=== PATIENT | female | born 1965 | race Caucasian/White ===

== ENCOUNTER 2022-02-17 17:40 | Observation (INO) | payer BC, OTHER ==
[2022-02-17] MEDS ORDERED: BABY ASPIRIN 81 MG CHEW PO ONE (17:45)
[2022-02-17] MEDS ORDERED: Nitrostat 0.4 MG (ED) SL ONE (17:47)
[2022-02-17] MEDS ORDERED: BABY ASPIRIN 81 MG CHEW ONE (17:50)
[2022-02-17] MEDS ORDERED: MORPHINE SULFATE 4 MG INJ ONE (17:50)
[2022-02-17] MEDS ORDERED: Zofran 4 MG/2 ML VIAL ONE (17:50)
[2022-02-17] MEDS ORDERED: MORPHINE SULFATE 4 MG INJ IV ONE (17:50)
[2022-02-17] MEDS ORDERED: Zofran 4 MG/2 ML VIAL IV ONE (17:50)
[2022-02-17 18:01] LABS: Absolute Neutrophil Ct (ANC) 3.81 x10^3/uL (1.4-6.9); Basophil (Absolute #) 0.06 x10^3/uL (0-0.4); Eosinophil % 2.5 % (0.00-5.0); Eosinophil (Absolute #) 0.17 x10^3/uL (0-0.5); Hematocrit 44.3 % (35-47); Hemoglobin 14.6 g/dL (12.0-16.0); Lymphocyte (Absolute #) 2.18 x10^3/uL (1.0-4.6); Lymphocytes % 31.5 % (24.0-44.0); Mean Cell Volume 93.9 fL (78-100); Mean Corpuscular Hemoglobin 30.9 pg (26-32); Mean Platelet Volume 9.7 fL (7.5-11.0); Monocyte (Absolute #) 0.68 x10^3/uL (0.0-1.3); Monocytes % 9.8 % (0.0-12.0); Platelet Count 317 x10^3/uL (150-450); Red Blood Count 4.72 x10^6/uL (4.1-5.4); Red Cell Distribution Width 12.1 % (11.5-14.0); White Blood Count 6.9 x10^3/uL (4.0-10.5)
--- NOTE | 2022-02-17 18:01 | ERPHSYRPT ---
<LEIGH THORNTON - Last Filed: 02/17/22 19:14> - History of Present Illness Time Seen by Provider: 02/17/22 17:45 Historian: patient Exam Limitations: no limitations Patient Subjective Stated Complaint: Pt states "I was driving and had pressure in my chest and the pain went into my back." Triage Nursing Assessment: Pt presented alert and oriented X 3, skin pwd. Pt clutching her chest, unable to sit stil. PT moaning and grunting. Physician History: 56 yo wf w inferior, mid-sternal chest pain which started 20 minutes before ER arrival while driving away from [facility]. Pain radiated to her back and is currently rated 4/10 from a high of 9/10. It is described as a pressure, and nothing makes it better or worse. Pt denies N/V/dyspnea/diaphoresis. She denies h/o CAD-[place], along w HTN/DM/hyperlipidemia/FH CAD-[place]. She does smoke 1ppd and has never had this pain before. Cough/Fever/Coryza are denied. Timing/Duration: other (20minutes before arrival) Activities at Onset: other (Driving from [facility]) Quality: pressure Location: substernal Chest Pain Radiation: back Severity of Pain-Max: severe Severity of Pain-Current: moderate Modifying Factors: Improves With: nothing Associated Symptoms: denies symptoms Prior Chest Pain/Cardiac Workup: no prior chest pain Nitro Today/Relief: no nitro taken today Aspirin Treatment Today: no aspirin today Allergies/Adverse Reactions: No Known Drug Allergies Allergy (Verified 02/17/22 17:48) Home Medications: No Reportable Medications [No Reported Medications] 02/17/22 [History] Hx Tetanus, Diphtheria Vaccination/Date Given: No Hx Influenza Vaccination/Date Given: No Hx Pneumococcal Vaccination/Date Given: Yes Immunizations Up to Date: Yes Travel Risk - International Travel Have you traveled outside of the country in past 3 weeks: No - Coronavirus Screening Are you exhibiting any of the following symptoms?: No Close contact with a COVID-19 positive Pt in past 14-21 Days: No - Vaccine Status Have you recieved a Covid-19 vaccination: Yes 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 - Vaccination Dates Date of 2cond Vaccination (if applicable): 2020 - Review of Systems Constitutional: No Symptoms Eyes: No Symptoms Ears, Nose, & Throat: No Symptoms Respiratory: No Symptoms Cardiac: No Symptoms, Chest Pain Abdominal/Gastrointestinal: No Symptoms Genitourinary Symptoms: No Symptoms Musculoskeletal: No Symptoms Skin: No Symptoms Neurological: No Symptoms Psychological: No Symptoms Endocrine: No Symptoms Hematologic/Lymphatic: No Symptoms Immunological/Allergic: No Symptoms - Past Medical History Pertinent Past Medical History: No Neurological History: No Pertinent History Cardiac History: No Pertinent History Respiratory History: No Pertinent History Endocrine Medical History: No Pertinent History Musculoskeletal History: No Pertinent History - Past Surgical History Past Surgical History: Yes Other Surgical History: colton. . laproscopic - Social History Smoking Status: Current every day smoker How long have you smoked: years Exposure to second hand smoke: Yes Drug Use: none Patient Lives Alone: No - Nursing Vital Signs Nursing Vital Signs: Hypertensive - Physical Exam General Appearance: no apparent distress Eye Exam: PERRL/EOMI, eyes nml inspection Ears, Nose, Throat Exam: normal ENT inspection, TMs normal, pharynx normal, moist mucous membranes Neck Exam: normal inspection, non-tender, supple, full range of motion, No meningismus, No mass, No Brudzinski, No Kernig's, No carotid bruit Respiratory Exam: normal breath sounds, lungs clear, airway intact, No chest tenderness, No respiratory distress Cardiovascular Exam: regular rate/rhythm, normal heart sounds, normal peripheral pulses, capillary refill <2 sec, No murmur Gastrointestinal/Abdomen Exam: soft, normal bowel sounds, No tenderness Back Exam: normal inspection, normal range of motion, No CVA tenderness, No vertebral tenderness Extremity Exam: normal inspection, normal range of motion Neurologic Exam: alert, oriented x 3, cooperative, 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, normal mood/affect, nml cerebellar function, nml station & gait, sensation nml, No motor deficits, No sensory deficit Skin Exam: normal color, warm, dry, No rash Lymphatic Exam: No adenopathy SpO2 Interpretation: normal SpO2: 98 O2 Delivery: Room Air - Course Nursing assessment & vital signs reviewed: Yes EKG Interpreted by Me: RATE (NSR/Rate 74/Normal QT0QTc/Normal Pwaves/Non-specif ic ST changes) - Radiology Exams Chest X-ray Interpretation: Interpreted by me (NAD) - Progress Progress: improved Progress Note: 02/17/22 19:06 Pain greatly improved w 4mg IV MSO4/4mg IV zofran 02/17/22 19:14 Dr. Garcia assumed care of pt at 1900 - Departure Clinical Impression: ACS (acute coronary syndrome), Chest pain, Abnormal ECG Condition: Stable <MYRIAM GARCIA - Last Filed: 02/17/22 23:43> - Nursing Vital Signs Nursing Vital Signs: Initial Vital Signs Temperature 98.0 F 02/17/22 17:41 Pulse Rate 88 02/17/22 17:41 Respiratory Rate 20 02/17/22 17:41 Blood Pressure 175/80 02/17/22 17:41 O2 Sat by Pulse Oximetry 98 02/17/22 17:41 Pain Scale Pain Intensity 0 Ordered Tests: Active Orders 24 hr Category Date Time Status Bedrest with BRP/BSC ROUTINE Activity 02/17/22 23:18 Active Code Status Order ROUTINE Care 02/17/22 23:18 Active EKG-ER Only STAT Care 02/17/22 17:45 Completed IV Care Q6H Care 02/17/22 23:18 Active IV Insertion STAT Care 02/17/22 17:45 Completed Implement Chest Pain Pathway ROUTINE Care 02/17/22 23:[address] in Observation ROUTINE Care 02/17/22 23:18 Active Shai Ballesteros, Apply ROUTINE Care 02/17/22 23:18 Active Telemetry q6h Care 02/17/22 23:18 Active Weight,Daily 0600 Care 02/17/22 23:18 Active Consistent Carbohydrate Diet 1800 Calorie Diet 02/18/22 Breakfast Active CHEST 1 VIEW (PORTABLE) Stat Exams 02/17/22 17:46 Taken CBC W DIFF Stat Lab 02/17/22 17:50 Completed CMP Stat Lab 02/17/22 17:50 Completed LIPID PROFILE AM.LAB Lab 02/18/22 04:00 Ordered NT PRO BNP Stat Lab 02/17/22 17:50 Completed PROTIME WITH INR Stat Lab 02/17/22 17:50 Completed PTT Stat Lab 02/17/22 17:50 Completed TROPONIN Q4H Lab 02/17/22 17:50 Completed TROPONIN Q4H Lab 02/17/22 21:07 Completed TROPONIN Q4H Lab 02/18/22 02:00 Ordered TROPONIN Q4H Lab 02/18/22 03:18 Ordered TROPONIN Q4H Lab 02/18/22 07:18 Ordered EKG Q8HX2,QAMX3,PRN RT 02/17/22 23:18 Active Pulse Oximetry Q4H RT 02/17/22 23:18 Active Transfer Order Routine Transfer 02/17/22 Completed Medication Summary Generic Name Dose Route Start Last Admin Trade Name Jesus PRN Reason Stop Dose Admin Acetaminophen 650 mg 02/17/22 23:18 Acetaminophen 325 Mg Tablet PO 03/19/22 23:17 Q4H PRN PRN PAIN AND/OR FEVER Al Hydrox/Mg Hydrox/Simethicone 30 ml 02/17/22 23:18 Mag Hydrox/Al Hydrox/Simeth 30 Ml Udcup PO 03/19/22 23:17 Q4H PRN PRN INDIGESTION Magnesium Hydroxide 30 - 60 ml 02/17/22 23:18 Magnesium Hydroxide 30 Ml Udcup PO 03/19/22 23:17 QDP PRN CONSTIPATION Ondansetron HCl 4 mg 02/17/22 23:18 Ondansetron Hcl 4 Mg/2 Ml Vial IV 03/19/22 23:17 Q4H PRN PRN NAUSEA/VOMITING Senna/Docusate Sodium 2 udtab 02/17/22 23:18 Senna/Docusate Sodium 1 Udtab Tablet PO 03/19/22 23:17 BID PRN PRN CONSTIPATION Discontinued Medications Generic Name Dose Route Start Last Admin Trade Name Jesus PRN Reason Stop Dose Admin Aspirin 324 mg 02/17/22 17:45 02/17/22 17:53 Aspirin 81 Mg Tab.Chew PO 02/17/22 17:46 324 mg STAT ONE Administration Aspirin Confirm 02/17/22 17:50 Aspirin 81 Mg Tab.Chew Administered 02/17/22 17:51 Dose 324 mg .ROUTE .STK-MED ONE Morphine Sulfate 4 mg 02/17/22 17:50 02/17/22 17:52 Morphine Sulfate 4 Mg/Ml Injection IV 02/17/22 17:51 4 mg STAT ONE Administration Morphine Sulfate Confirm 02/17/22 17:50 Morphine Sulfate 4 Mg/Ml Injection Administered 02/17/22 17:51 Dose 4 mg .ROUTE .STK-MED ONE Nitroglycerin 0.4 mg 02/17/22 17:47 02/17/22 17:49 Nitroglycerin 0.4 Mg (Ed) 0.4 Mg Tab.Subl SL 02/17/22 17:48 Not Given STAT ONE Ondansetron HCl 4 mg 02/17/22 17:50 02/17/22 17:53 Ondansetron Hcl 4 Mg/2 Ml Vial IV 02/17/22 17:51 4 mg STAT ONE Administration Ondansetron HCl Confirm 02/17/22 17:50 Ondansetron Hcl 4 Mg/2 Ml Vial Administered 02/17/22 17:51 Dose 4 mg .ROUTE .STK-MED ONE Lab/Rad Data: Laboratory Result Diagrams 02/17/22 17:50 02/17/22 17:50 Laboratory Results 02/17/22 02/17/22 02/17/22 Range/Units 21:07 21:07 17:50 WBC (4.0-10.5) x10^3/uL RBC (4.1-5.4) x10^6/uL Hgb (12.0-16.0) g/dL Hct (35-47) % MCV (78-100) fL MCH (26-32) pg MCHC (32-36) g/dL RDW (11.5-14.0) % Plt Count (150-450) x10^3/uL MPV (7.5-11.0) fL Gran % (36.0-66.0) % Immature Gran % (Auto) (0.00-0.4) % Nucleat RBC Rel Count (0.00-0.1) % Eos # (Auto) (0-0.5) x10^3/uL Immature Gran # (Auto) (0.00-0.03) x10^3u/L Absolute Lymphs (auto) (1.0-4.6) x10^3/uL Absolute Monos (auto) (0.0-1.3) x10^3/uL Absolute Nucleated RBC (0.00-0.01) x10^3u/L Lymphocytes % (24.0-44.0) % Monocytes % (0.0-12.0) % Eosinophils % (0.00-5.0) % Basophils % (0.0-0.4) % Absolute Granulocytes (1.4-6.9) x10^3/uL Basophils # (0-0.4) x10^3/uL PT (9.4-12.5) SECONDS INR (0.8-3.0) APTT (25.1-36.5) SECONDS Sodium (137-145) mmol/L Potassium (3.5-5.1) mmol/L Chloride (98-107) mmol/L Carbon Dioxide (22-30) mmol/L Anion Gap (5-15) MEQ/L BUN (7-17) mg/dL Creatinine (0.52-1.04) mg/dL Estimated GFR ML/MIN Glucose (74-106) mg/dL Calcium (8.4-10.2) mg/dL Total Bilirubin (0.2-1.3) mg/dL AST (14-36) U/L ALT (0-35) U/L Alkaline Phosphatase (38-126) U/L Troponin I < 0.012 < 0.012 (0.000-0.034) ng/mL NT-Pro-B Natriuret Pep (0-900) pg/mL Serum Total Protein (6.3-8.2) g/dL Albumin (3.5-5.0) g/dL Influenza Type A Ag NEGATIVE (NEGATIVE) Influenza Type B Ag NEGATIVE (NEGATIVE) RSV (PCR) NEGATIVE (Negative) SARS-CoV-2 (PCR) NEGATIVE (NEGATIVE) 02/17/22 02/17/22 02/17/22 Range/Units 17:50 17:50 17:50 WBC 6.9 (4.0-10.5) x10^3/uL RBC 4.72 (4.1-5.4) x10^6/uL Hgb 14.6 (12.0-16.0) g/dL Hct 44.3 (35-47) % MCV 93.9 (78-100) fL MCH 30.9 (26-32) pg MCHC 33.0 (32-36) g/dL RDW 12.1 (11.5-14.0) % Plt Count 317 (150-450) x10^3/uL MPV 9.7 (7.5-11.0) fL Gran % 55.0 (36.0-66.0) % Immature Gran % (Auto) 0.3 (0.00-0.4) % Nucleat RBC Rel Count 0.0 (0.00-0.1) % Eos # (Auto) 0.17 (0-0.5) x10^3/uL Immature Gran # (Auto) 0.02 (0.00-0.03) x10^3u/L Absolute Lymphs (auto) 2.18 (1.0-4.6) x10^3/uL Absolute Monos (auto) 0.68 (0.0-1.3) x10^3/uL Absolute Nucleated RBC 0.00 (0.00-0.01) x10^3u/L Lymphocytes % 31.5 (24.0-44.0) % Monocytes % 9.8 (0.0-12.0) % Eosinophils % 2.5 (0.00-5.0) % Basophils % 0.9 (0.0-0.4) % Absolute Granulocytes 3.81 (1.4-6.9) x10^3/uL Basophils # 0.06 (0-0.4) x10^3/uL PT 10.4 (9.4-12.5) SECONDS INR 0.98 (0.8-3.0) APTT 26.1 (25.1-36.5) SECONDS Sodium 139 (137-145) mmol/L Potassium 4.5 (3.5-5.1) mmol/L Chloride 105 (98-107) mmol/L Carbon Dioxide 28 (22-30) mmol/L Anion Gap 11.8 (5-15) MEQ/L BUN 16 (7-17) mg/dL Creatinine 0.60 (0.52-1.04) mg/dL Estimated GFR > 60.0 ML/MIN Glucose 98 (74-106) mg/dL Calcium 9.4 (8.4-10.2) mg/dL Total Bilirubin 0.30 (0.2-1.3) mg/dL AST 26 (14-36) U/L ALT 26 (0-35) U/L Alkaline Phosphatase 78 (38-126) U/L Troponin I (0.000-0.034) ng/mL NT-Pro-B Natriuret Pep 31.7 (0-900) pg/mL Serum Total Protein 7.2 (6.3-8.2) g/dL Albumin 4.5 (3.5-5.0) g/dL Influenza Type A Ag (NEGATIVE) Influenza Type B Ag (NEGATIVE) RSV (PCR) (Negative) SARS-CoV-2 (PCR) (NEGATIVE) - Progress Air Movement: good Progress Note: Patient endorsed Dr. Garcia at approximately 7 PM. Troponin negative. However EKG abnormal. In light of patient's cardiac risk factors and the fact that she has not had a cardiac work-up in over 6 years we will admit for further ev aluation and treatment. Case discussed with Dr. Brown who accepts admission to observation. Plan of care discussed with patient. She agrees to admission [facility] for further evaluation and treatment. Portions of this note were created with voice recognition technology. There may be grammatical, spelling, punctuation or sound alike errors 02/17/22 23:39 Blood Culture(s) Obtained: No Antibiotics given: No Discussed with : Esther Will see patient in: hospital (observation) Counseled pt/family regarding: lab results, diagnosis, rad results - Departure Departure Disposition: Observation Critical Care Time: No
[2022-02-17 18:44] LABS: ALBUMIN 4.5 g/dL (3.5-5.0); ALKALINE PHOSPHATASE 78 U/L (38-126); ANION GAP 11.8 MEQ/L (5-15); BLOOD UREA NITROGEN 16 mg/dL (7-17); CHLORIDE 105 mmol/L (98-107); Calcium 9.4 mg/dL (8.4-10.2); Carbon Dioxide 28 mmol/L (22-30); EST GLOMERULAR FILTRATION RATE > 60.0 ML/MIN; Glucose 98 mg/dL (74-106); NT PRO BNP 31.7 pg/mL (0-900); Potassium 4.5 mmol/L (3.5-5.1); SGOT/AST 26 U/L (14-36); SGPT/ALT 26 U/L (0-35); SODIUM 139 mmol/L (137-145); Total Protein 7.2 g/dL (6.3-8.2)
[2022-02-17 19:05] LABS: INR 0.98 (0.8-3.0); PROTIME 10.4 SECONDS (9.4-12.5); PTT 26.1 SECONDS (25.1-36.5)
[2022-02-17 21:46] LABS: INFLUENZA A NEGATIVE (NEGATIVE); INFLUENZA B NEGATIVE (NEGATIVE); RESPIRATORY SYNCTIAL VIRUS NEGATIVE (Negative); SARS-CoV-2 Xpert Express NEGATIVE (NEGATIVE)
[2022-02-17] MEDS ORDERED: MILK OF MAGNESIA 30 ML PO PRN (23:18)
[2022-02-17] MEDS ORDERED: Senokot-S Tablet PO PRN (23:18)
[2022-02-17] MEDS ORDERED: Zofran 4 MG/2 ML VIAL IV PRN (23:18)
[2022-02-17] MEDS ORDERED: MAALOX ES 30 ML UNIT DOSE PO PRN (23:18)
[2022-02-17] MEDS ORDERED: TYLENOL 325 MG PO PRN (23:18)
[2022-02-18 02:51] LABS: Risk Ratio 3.2
[2022-02-18] MEDS ORDERED: PATIENT OWN MEDICATION IH PRN (05:35)
[2022-02-18] MEDS ORDERED: PATIENT OWN MEDICATION IH SCH (07:00)
--- NOTE | 2022-02-18 08:42 | XRAY ---
Indication: Chest pain. Comparison: June 21, 2019 Portable chest remains hyperinflated and clear. Heart not enlarged. Bony thorax intact again with mild osteopenia. No new/acute findings.
--- NOTE | 2022-02-18 11:12 | PCM.SSS ---
History of Present Illness - Chief Complaint Chief Complaint: ACS History of Present Illness: is a 56 year old female pt of Gail Kumar, with hyperlipidemia, seasonal allergies, and PTSD who smokes 1 PPD who came in through ER with chest pain. She had been driving nearby and started having pressure in the midsternum radiating to thoracic spine. Pain was 7/10, came on quickly and lasted about 20 min. Had SOB, palpitations, and a littel diaphoresis (hands were clammy). No nausea. Has no hx SD or CAD. Her last stress test was several years ago, treadmill. Her daughter has heart issues and sees a bran mixer, but pt says that is related to Covid. Her EKG was nonacute. Troponins have been neg x 3. She will be discharged to home and f/u with Gail Kumar in 1 week. Will schedule outpatient treadmill test. Would advise pt to stop smoking. - Review of Systems Respiratory: Short Of Breath Cardiac: Chest Pain, Palpitations, Other (palpitations, diaphoresis) Psychological: Anxiety All Other Systems: Reviewed and Negative Medications & Allergies Home Medications: Home Medication List Albuterol Common Canister [Ventolin Common Canister] 90 mcg IH Q4H 02/18/22 [History Confirmed 02/18/22] Allergies/Adverse Reactions: Allergies Allergy/AdvReac Type Severity Reaction Status Date / Time No Known Drug Allergies Allergy Verified 02/17/22 17:48 - Past Medical History Past Medical History: No Neurological History: No Pertinent History ENT History: No Pertinent History Cardiac History: No Pertinent History Respiratory History: No Pertinent History Endocrine Medical History: No Pertinent History Musculoskelatal History: No Pertinent History GI Medical History: No Pertinent History History: No Pertinent History Pyscho-Social History: No Pertinent History Reproductive Disorders: No Pertinent History - Past Surgical History Past Surgical History: Yes Respiratory Surgery: Other GI Surgical History: Cholecystectomy Female Surgical History: Section Other Surgical History: asthma - Social History Smoking Status: Current every day smoker How long have you smoked: years Exposure to second hand smoke: Yes Alcohol: Weekly Drug Use: none - Physical Exam Vital Signs: Vital Signs - 24 hr Temp Pulse Pulse Resp BP Pulse Ox 02/18/22 07:31 97.6 F 63 16 126/76 92 L 02/18/22 07:00 66 16 93 L 11/16/22 05:37 78 18 94 L 02/18/22 04:00 97.5 F 73 17 140/66 93 L 02/17/22 23:43 96.9 F 68 17 140/66 96 02/17/22 22:00 62 16 114/67 94 L 02/17/22 21:00 70 14 130/83 95 02/17/22 20:00 68 16 115/72 92 L 02/17/22 19:21 72 18 117/75 98 02/17/22 19:14 98 02/17/22 18:48 65 20 135/71 94 L 02/17/22 17:41 98.0 F 88 80 20 175/80 98 General Appearance: no apparent distress, thin Neurologic Exam: alert, oriented x 3, cooperative Eye Exam: eyes nml inspection Ears, Nose, Throat Exam: dry mucous membranes Neck Exam: normal inspection, non-tender, No lymphadenopathy, No thyromegaly Respiratory Exam: normal breath sounds, lungs clear, No crackles/rales, No rhonchi, No wheezing Cardiovascular Exam: regular rate/rhythm, normal heart sounds, No murmur Gastrointestinal/Abdomen Exam: soft, normal bowel sounds, No tenderness, No distention, No mass, No guarding, No rebound Back Exam: normal inspection, No CVA tenderness, No rash Extremity Exam: normal inspection, No pedal edema, No swelling Skin Exam: normal color, warm, dry, No rash Results - Labs Lab/Micro Results: Lab Results-Last 24 Hours 02/17/22 02/17/22 02/17/22 Range/Units 17:50 17:50 17:50 WBC 6.9 (4.0-10.5) x10^3/uL RBC 4.72 (4.1-5.4) x10^6/uL Hgb 14.6 (12.0-16.0) g/dL Hct 44.3 (35-47) % MCV 93.9 (78-100) fL MCH 30.9 (26-32) pg MCHC 33.0 (32-36) g/dL RDW 12.1 (11.5-14.0) % Plt Count 317 (150-450) x10^3/uL MPV 9.7 (7.5-11.0) fL Gran % 55.0 (36.0-66.0) % Immature Gran % (Auto) 0.3 (0.00-0.4) % Nucleat RBC Rel Count 0.0 (0.00-0.1) % Eos # (Auto) 0.17 (0-0.5) x10^3/uL Immature Gran # (Auto) 0.02 (0.00-0.03) x10^3u/L Absolute Lymphs (auto) 2.18 (1.0-4.6) x10^3/uL Absolute Monos (auto) 0.68 (0.0-1.3) x10^3/uL Absolute Nucleated RBC 0.00 (0.00-0.01) x10^3u/L Lymphocytes % 31.5 (24.0-44.0) % Monocytes % 9.8 (0.0-12.0) % Eosinophils % 2.5 (0.00-5.0) % Basophils % 0.9 (0.0-0.4) % Absolute Granulocytes 3.81 (1.4-6.9) x10^3/uL Basophils # 0.06 (0-0.4) x10^3/uL PT 10.4 (9.4-12.5) SECONDS INR 0.98 (0.8-3.0) APTT 26.1 (25.1-36.5) SECONDS Sodium 139 (137-145) mmol/L Potassium 4.5 (3.5-5.1) mmol/L Chloride 105 (98-107) mmol/L Carbon Dioxide 28 (22-30) mmol/L Anion Gap 11.8 (5-15) MEQ/L BUN 16 (7-17) mg/dL Creatinine 0.60 (0.52-1.04) mg/dL Estimated GFR > 60.0 ML/MIN Glucose 98 (74-106) mg/dL Calcium 9.4 (8.4-10.2) mg/dL Total Bilirubin 0.30 (0.2-1.3) mg/dL AST 26 (14-36) U/L ALT 26 (0-35) U/L Alkaline Phosphatase 78 (38-126) U/L Troponin I (0.000-0.034) ng/mL NT-Pro-B Natriuret Pep 31.7 (0-900) pg/mL Serum Total Protein 7.2 (6.3-8.2) g/dL Albumin 4.5 (3.5-5.0) g/dL Triglycerides (30-150) mg/dL Cholesterol (50-200) mg/dL LDL Cholesterol (30-100) mg/dL HDL Cholesterol (40-60) mg/dL Heart Disease Risk Ratio Influenza Type A Ag (NEGATIVE) Influenza Type B Ag (NEGATIVE) RSV (PCR) (Negative) SARS-CoV-2 (PCR) (NEGATIVE) 02/17/22 02/17/22 02/17/22 Range/Units 17:50 21:07 21:07 WBC (4.0-10.5) x10^3/uL RBC (4.1-5.4) x10^6/uL Hgb (12.0-16.0) g/dL Hct (35-47) % MCV (78-100) fL MCH (26-32) pg MCHC (32-36) g/dL RDW (11.5-14.0) % Plt Count (150-450) x10^3/uL MPV (7.5-11.0) fL Gran % (36.0-66.0) % Immature Gran % (Auto) (0.00-0.4) % Nucleat RBC Rel Count (0.00-0.1) % Eos # (Auto) (0-0.5) x10^3/uL Immature Gran # (Auto) (0.00-0.03) x10^3u/L Absolute Lymphs (auto) (1.0-4.6) x10^3/uL Absolute Monos (auto) (0.0-1.3) x10^3/uL Absolute Nucleated RBC (0.00-0.01) x10^3u/L Lymphocytes % (24.0-44.0) % Monocytes % (0.0-12.0) % Eosinophils % (0.00-5.0) % Basophils % (0.0-0.4) % Absolute Granulocytes (1.4-6.9) x10^3/uL Basophils # (0-0.4) x10^3/uL PT (9.4-12.5) SECONDS INR (0.8-3.0) APTT (25.1-36.5) SECONDS Sodium (137-145) mmol/L Potassium (3.5-5.1) mmol/L Chloride (98-107) mmol/L Carbon Dioxide (22-30) mmol/L Anion Gap (5-15) MEQ/L BUN (7-17) mg/dL Creatinine (0.52-1.04) mg/dL Estimated GFR ML/MIN Glucose (74-106) mg/dL Calcium (8.4-10.2) mg/dL Total Bilirubin (0.2-1.3) mg/dL AST (14-36) U/L ALT (0-35) U/L Alkaline Phosphatase (38-126) U/L Troponin I < 0.012 < 0.012 (0.000-0.034) ng/mL NT-Pro-B Natriuret Pep (0-900) pg/mL Serum Total Protein (6.3-8.2) g/dL Albumin (3.5-5.0) g/dL Triglycerides (30-150) mg/dL Cholesterol (50-200) mg/dL LDL Cholesterol (30-100) mg/dL HDL Cholesterol (40-60) mg/dL Heart Disease Risk Ratio Influenza Type A Ag NEGATIVE (NEGATIVE) Influenza Type B Ag NEGATIVE (NEGATIVE) RSV (PCR) NEGATIVE (Negative) SARS-CoV-2 (PCR) NEGATIVE (NEGATIVE) 02/18/22 02/18/22 Range/Units 02:15 02:15 WBC (4.0-10.5) x10^3/uL RBC (4.1-5.4) x10^6/uL Hgb (12.0-16.0) g/dL Hct (35-47) % MCV (78-100) fL MCH (26-32) pg MCHC (32-36) g/dL RDW (11.5-14.0) % Plt Count (150-450) x10^3/uL MPV (7.5-11.0) fL Gran % (36.0-66.0) % Immature Gran % (Auto) (0.00-0.4) % Nucleat RBC Rel Count (0.00-0.1) % Eos # (Auto) (0-0.5) x10^3/uL Immature Gran # (Auto) (0.00-0.03) x10^3u/L Absolute Lymphs (auto) (1.0-4.6) x10^3/uL Absolute Monos (auto) (0.0-1.3) x10^3/uL Absolute Nucleated RBC (0.00-0.01) x10^3u/L Lymphocytes % (24.0-44.0) % Monocytes % (0.0-12.0) % Eosinophils % (0.00-5.0) % Basophils % (0.0-0.4) % Absolute Granulocytes (1.4-6.9) x10^3/uL Basophils # (0-0.4) x10^3/uL PT (9.4-12.5) SECONDS INR (0.8-3.0) APTT (25.1-36.5) SECONDS Sodium (137-145) mmol/L Potassium (3.5-5.1) mmol/L Chloride (98-107) mmol/L Carbon Dioxide (22-30) mmol/L Anion Gap (5-15) MEQ/L BUN (7-17) mg/dL Creatinine (0.52-1.04) mg/dL Estimated GFR ML/MIN Glucose (74-106) mg/dL Calcium (8.4-10.2) mg/dL Total Bilirubin (0.2-1.3) mg/dL AST (14-36) U/L ALT (0-35) U/L Alkaline Phosphatase (38-126) U/L Troponin I < 0.012 (0.000-0.034) ng/mL NT-Pro-B Natriuret Pep (0-900) pg/mL Serum Total Protein (6.3-8.2) g/dL Albumin (3.5-5.0) g/dL Triglycerides 127 (30-150) mg/dL Cholesterol 186 (50-200) mg/dL LDL Cholesterol 102 H (30-100) mg/dL HDL Cholesterol 59 (40-60) mg/dL Heart Disease Risk Ratio 3.2 Influenza Type A Ag (NEGATIVE) Influenza Type B Ag (NEGATIVE) RSV (PCR) (Negative) SARS-CoV-2 (PCR) (NEGATIVE) - Radiology Impressions Radiology Exams & Impressions: Radiology Procedures Category Date Time Status CHEST 1 VIEW (PORTABLE) Stat Exams 02/17/22 17:46 Completed - Other Procedures and Tests Respiratory Therapy 02/18/22 05:34 Respiratory Therapy Assessment DAILY 02/18/22 07:00 Respiratory MDI TID 02/19/22 05:00 EKG DAILY 02/20/22 05:00 EKG DAILY 02/21/22 05:00 EKG DAILY Assessment/Plan (1) Chest pain Current Visit: Yes Status: Acute Qualifiers: Chest pain type: unspecified Qualified Code(s): R07.9 - Chest pain, unspecified Assessment & Plan: Troponins neg. EKG with some nonspecific ST changes, nothing indicative of acute SD. F/u with PCP in 1 week. F/u with outpatient treadmill. Code(s): R07.9 - CHEST PAIN, UNSPECIFIED Hospital Summary - Hospital Course Hospital Course: is a 56 year old female pt of Gail Kumar, with hyperlipidemia, seasonal allergies, and PTSD who smokes 1 PPD who came in through ER with chest pain. She had been driving nearby and started having pressure in the midsternum radiating to thoracic spine. Pain was 7/10, came on quickly and lasted about 20 min. Had SOB, palpitations, and a littel diaphoresis (hands were clammy). No nausea. Has no hx SD or CAD. Her last stress test was several years ago, [facility]. Her daughter has heart issues and sees a bran mixer, but pt says that is related to Covid. Her EKG was nonacute. Troponins have been neg x 3. She will be discharged to home and f/u with Gail Kumar in 1 week. Will schedule outpatient treadmill test. Would advise pt to stop smoking. - Vitals & Intake/Output Vital Signs: Vital Signs Temperature 97.6 F 02/18/22 07:31 Pulse Rate 63 02/18/22 07:31 Respiratory Rate 16 02/18/22 07:31 Blood Pressure 126/76 02/18/22 07:31 O2 Sat by Pulse Oximetry 92 L 02/18/22 07:31 Intake & Output: Intake & Output 02/15/22 02/16/22 02/17/22 02/18/22 11:59 11:59 11:59 11:59 Intake Total 960 Balance 960 Weight 65.1 kg - Lab Result Diagrams: 02/17/22 17:50 02/17/22 17:50 Lab Results-Last 24 Hrs: Lab Results-Last 24 Hours 02/17/22 02/17/22 02/17/22 Range/Units 17:50 17:50 17:50 WBC 6.9 (4.0-10.5) x10^3/uL RBC 4.72 (4.1-5.4) x10^6/uL Hgb 14.6 (12.0-16.0) g/dL Hct 44.3 (35-47) % MCV 93.9 (78-100) fL MCH 30.9 (26-32) pg MCHC 33.0 (32-36) g/dL RDW 12.1 (11.5-14.0) % Plt Count 317 (150-450) x10^3/uL MPV 9.7 (7.5-11.0) fL Gran % 55.0 (36.0-66.0) % Immature Gran % (Auto) 0.3 (0.00-0.4) % Nucleat RBC Rel Count 0.0 (0.00-0.1) % Eos # (Auto) 0.17 (0-0.5) x10^3/uL Immature Gran # (Auto) 0.02 (0.00-0.03) x10^3u/L Absolute Lymphs (auto) 2.18 (1.0-4.6) x10^3/uL Absolute Monos (auto) 0.68 (0.0-1.3) x10^3/uL Absolute Nucleated RBC 0.00 (0.00-0.01) x10^3u/L Lymphocytes % 31.5 (24.0-44.0) % Monocytes % 9.8 (0.0-12.0) % Eosinophils % 2.5 (0.00-5.0) % Basophils % 0.9 (0.0-0.4) % Absolute Granulocytes 3.81 (1.4-6.9) x10^3/uL Basophils # 0.06 (0-0.4) x10^3/uL PT 10.4 (9.4-12.5) SECONDS INR 0.98 (0.8-3.0) APTT 26.1 (25.1-36.5) SECONDS Sodium 139 (137-145) mmol/L Potassium 4.5 (3.5-5.1) mmol/L Chloride 105 (98-107) mmol/L Carbon Dioxide 28 (22-30) mmol/L Anion Gap 11.8 (5-15) MEQ/L BUN 16 (7-17) mg/dL Creatinine 0.60 (0.52-1.04) mg/dL Estimated GFR > 60.0 ML/MIN Glucose 98 (74-106) mg/dL Calcium 9.4 (8.4-10.2) mg/dL Total Bilirubin 0.30 (0.2-1.3) mg/dL AST 26 (14-36) U/L ALT 26 (0-35) U/L Alkaline Phosphatase 78 (38-126) U/L Troponin I (0.000-0.034) ng/mL NT-Pro-B Natriuret Pep 31.7 (0-900) pg/mL Serum Total Protein 7.2 (6.3-8.2) g/dL Albumin 4.5 (3.5-5.0) g/dL Triglycerides (30-150) mg/dL Cholesterol (50-200) mg/dL LDL Cholesterol (30-100) mg/dL HDL Cholesterol (40-60) mg/dL Heart Disease Risk Ratio Influenza Type A Ag (NEGATIVE) Influenza Type B Ag (NEGATIVE) RSV (PCR) (Negative) SARS-CoV-2 (PCR) (NEGATIVE) 02/17/22 02/17/22 02/17/22 Range/Units 17:50 21:07 21:07 WBC (4.0-10.5) x10^3/uL RBC (4.1-5.4) x10^6/uL Hgb (12.0-16.0) g/dL Hct (35-47) % MCV (78-100) fL MCH (26-32) pg MCHC (32-36) g/dL RDW (11.5-14.0) % Plt Count (150-450) x10^3/uL MPV (7.5-11.0) fL Gran % (36.0-66.0) % Immature Gran % (Auto) (0.00-0.4) % Nucleat RBC Rel Count (0.00-0.1) % Eos # (Auto) (0-0.5) x10^3/uL Immature Gran # (Auto) (0.00-0.03) x10^3u/L Absolute Lymphs (auto) (1.0-4.6) x10^3/uL Absolute Monos (auto) (0.0-1.3) x10^3/uL Absolute Nucleated RBC (0.00-0.01) x10^3u/L Lymphocytes % (24.0-44.0) % Monocytes % (0.0-12.0) % Eosinophils % (0.00-5.0) % Basophils % (0.0-0.4) % Absolute Granulocytes (1.4-6.9) x10^3/uL Basophils # (0-0.4) x10^3/uL PT (9.4-12.5) SECONDS INR (0.8-3.0) APTT (25.1-36.5) SECONDS Sodium (137-145) mmol/L Potassium (3.5-5.1) mmol/L Chloride (98-107) mmol/L Carbon Dioxide (22-30) mmol/L Anion Gap (5-15) MEQ/L BUN (7-17) mg/dL Creatinine (0.52-1.04) mg/dL Estimated GFR ML/MIN Glucose (74-106) mg/dL Calcium (8.4-10.2) mg/dL Total Bilirubin (0.2-1.3) mg/dL AST (14-36) U/L ALT (0-35) U/L Alkaline Phosphatase (38-126) U/L Troponin I < 0.012 < 0.012 (0.000-0.034) ng/mL NT-Pro-B Natriuret Pep (0-900) pg/mL Serum Total Protein (6.3-8.2) g/dL Albumin (3.5-5.0) g/dL Triglycerides (30-150) mg/dL Cholesterol (50-200) mg/dL LDL Cholesterol (30-100) mg/dL HDL Cholesterol (40-60) mg/dL Heart Disease Risk Ratio Influenza Type A Ag NEGATIVE (NEGATIVE) Influenza Type B Ag NEGATIVE (NEGATIVE) RSV (PCR) NEGATIVE (Negative) SARS-CoV-2 (PCR) NEGATIVE (NEGATIVE) 02/18/22 02/18/22 Range/Units 02:15 02:15 WBC (4.0-10.5) x10^3/uL RBC (4.1-5.4) x10^6/uL Hgb (12.0-16.0) g/dL Hct (35-47) % MCV (78-100) fL MCH (26-32) pg MCHC (32-36) g/dL RDW (11.5-14.0) % Plt Count (150-450) x10^3/uL MPV (7.5-11.0) fL Gran % (36.0-66.0) % Immature Gran % (Auto) (0.00-0.4) % Nucleat RBC Rel Count (0.00-0.1) % Eos # (Auto) (0-0.5) x10^3/uL Immature Gran # (Auto) (0.00-0.03) x10^3u/L Absolute Lymphs (auto) (1.0-4.6) x10^3/uL Absolute Monos (auto) (0.0-1.3) x10^3/uL Absolute Nucleated RBC (0.00-0.01) x10^3u/L Lymphocytes % (24.0-44.0) % Monocytes % (0.0-12.0) % Eosinophils % (0.00-5.0) % Basophils % (0.0-0.4) % Absolute Granulocytes (1.4-6.9) x10^3/uL Basophils # (0-0.4) x10^3/uL PT (9.4-12.5) SECONDS INR (0.8-3.0) APTT (25.1-36.5) SECONDS Sodium (137-145) mmol/L Potassium (3.5-5.1) mmol/L Chloride (98-107) mmol/L Carbon Dioxide (22-30) mmol/L Anion Gap (5-15) MEQ/L BUN (7-17) mg/dL Creatinine (0.52-1.04) mg/dL Estimated GFR ML/MIN Glucose (74-106) mg/dL Calcium (8.4-10.2) mg/dL Total Bilirubin (0.2-1.3) mg/dL AST (14-36) U/L ALT (0-35) U/L Alkaline Phosphatase (38-126) U/L Troponin I < 0.012 (0.000-0.034) ng/mL NT-Pro-B Natriuret Pep (0-900) pg/mL Serum Total Protein (6.3-8.2) g/dL Albumin (3.5-5.0) g/dL Triglycerides 127 (30-150) mg/dL Cholesterol 186 (50-200) mg/dL LDL Cholesterol 102 H (30-100) mg/dL HDL Cholesterol 59 (40-60) mg/dL Heart Disease Risk Ratio 3.2 Influenza Type A Ag (NEGATIVE) Influenza Type B Ag (NEGATIVE) RSV (PCR) (Negative) SARS-CoV-2 (PCR) (NEGATIVE) - Radiology Exams Ordered Rad Exams-Entire Visit: Radiology Procedures Category Date Time Status CHEST 1 VIEW (PORTABLE) Stat Exams 02/17/22 17:46 Completed - Procedures and Test Procedures and Tests throughout Hospitalization: Therapy Orders & Screens 02/17/22 23:18 EKG [id number],QAMX3,PRN Comment: 02/18/22 00:08 Smoking Cessation Education ONCE Comment: Diagnosis: ACS Smoking Status: Current every day smoker How long have you smoked: years Do you dip or chew tobacco: No 02/18/22 05:00 EKG DAILY Comment: Diagnosis: ACS 02/18/22 05:34 Respiratory Therapy Assessment DAILY Comment: Diagnosis: ACS 02/18/22 07:00 Respiratory MDI TID Comment: Diagnosis: ACS 02/19/22 05:00 EKG DAILY Comment: Diagnosis: ACS 02/20/22 05:00 EKG DAILY Comment: Diagnosis: ACS 02/21/22 05:00 EKG DAILY Comment: Diagnosis: ACS - Discharge Disposition: Home, Self-Care Condition: Stable Prescriptions: Continue Albuterol Common Canister [Ventolin Common Canister] 90 mcg IH Q4H Follow up with: GAIL KUMAR NP [Primary Care Provider] -
[2022-02-18 11:51] VITALS: BP 127/59; PULSE 66; O2SAT 94
== END 2022-02-18 12:15 | disposition home or self-care (01) ==
LOC: ED 17:40 → MED SURG 23:03
PROVIDERS: ADMIT Family Medicine; ATTEND Family Medicine
DX: R07.9 Chest pain, unspecified (principal); R06.02 Shortness of breath; E78.5 Hyperlipidemia, unspecified; Z72.0 Tobacco use; Z20.828 Contact with and (suspected) exposure to other viral communicable diseases; Z79.899 Other long term (current) drug therapy
CPT/HCPCS: 0241U; 36000; 36415; 71045; 80053; 80061; 83721; 83880; 84484; 85025; 85610; 85730; 93005; 94640; 94760; 96374; 96375; 99285; 93268; J2270; J2405; A9270-GY; G0378

== ENCOUNTER 2022-05-20 12:22 | Day surgery (SDC) | payer BC ==
[2022-05-20] MEDS ORDERED: LIDOCAINE HCL 2% 100 MG/5 ML IJ ONE (12:23)
[2022-05-20] MEDS ORDERED: DIPRIVAN 200 MG/20 ML IV ONE (15:01)
[2022-05-20] MEDS ORDERED: Lactated Ringers 1,000 ML IV ONE (15:03)
--- NOTE | 2022-05-20 17:17 | XRAY ---
Indication: Left C2-C4 MBB. Intraoperative fluoroscopy provided for 15 seconds. 2 digital spot images submitted for interpretation demonstrates posterior needle tips projecting over the expected left C2-C4 nerve roots. Correlate with intraoperative findings/report.
--- NOTE | 2022-05-20 17:19 | XRAY ---
15 seconds of fluoroscopy was used in surgery for a left C2-C4 MBB.
== END 2022-05-20 15:24 | disposition home or self-care (01) ==
LOC: SDC-PAIN 12:22
PROVIDERS: ATTEND Psychiatry & Neurology Pain Medicine
DX: M47.812 Spondylosis without myelopathy or radiculopathy, cervical region (principal); Z79.899 Other long term (current) drug therapy
CPT/HCPCS: 64490; 64491; 72040; 77002; J2704

== ENCOUNTER 2022-06-24 11:26 | Day surgery (SDC) | payer BC ==
[2022-06-24] MEDS ORDERED: BUPIVACAINE 0.5% VIAL IJ ONE (11:27)
[2022-06-24] MEDS ORDERED: DIPRIVAN 200 MG/20 ML IV ONE (13:01)
[2022-06-24] MEDS ORDERED: Lactated Ringers 1,000 ML IV ONE (14:26)
--- NOTE | 2022-06-24 14:45 | XRAY ---
15 seconds of fluoroscopy was used in surgery for a left C2-C4 MBB.
--- NOTE | 2022-06-24 14:47 | XRAY ---
Indication: Left C2-C4 MBB. Intraoperative fluoroscopy provided for 15 seconds. 4 digital spot image submitted for interpretation demonstrates posterior needle tips projecting over the expected left C2-C4 nerve roots. Correlate with intraoperative findings/report.
== END 2022-06-24 13:35 | disposition home or self-care (01) ==
LOC: SDC-PAIN 11:26
PROVIDERS: ATTEND Psychiatry & Neurology Pain Medicine
DX: M47.812 Spondylosis without myelopathy or radiculopathy, cervical region (principal); Z79.899 Other long term (current) drug therapy
CPT/HCPCS: 64490; 64491; 72040; 77002; J2704

== ENCOUNTER 2022-08-05 13:44 | Day surgery (SDC) | payer BC ==
[2022-08-05] MEDS ORDERED: Decadron 4 MG INJ IV ONE (13:45)
[2022-08-05] MEDS ORDERED: LIDOCAINE HCL 1% 50 MG/5 ML VL PF IJ ONE (13:45)
[2022-08-05] MEDS ORDERED: BUPIVACAINE 0.5% VIAL IJ ONE (13:45)
[2022-08-05] MEDS ORDERED: DIPRIVAN 200 MG/20 ML IV ONE (15:03)
[2022-08-05] MEDS ORDERED: Lactated Ringers 1,000 ML IV ONE (16:51)
--- NOTE | 2022-08-05 18:14 | XRAY ---
Indication: Left C2-C4 RFA. Intraoperative fluoroscopy provided for 15 seconds. 3 digital spot image submitted for interpretation demonstrates posterior needle tips projecting over the expected left C2-C4 nerve roots. Correlate with intraoperative findings/report.
--- NOTE | 2022-08-06 17:15 | XRAY ---
15 seconds of fluoroscopy was used in surgery for a left C2-C4 RFA.
== END 2022-08-05 15:30 | disposition home or self-care (01) ==
LOC: SDC-PAIN 13:44
PROVIDERS: ATTEND Psychiatry & Neurology Pain Medicine
DX: M47.812 Spondylosis without myelopathy or radiculopathy, cervical region (principal)
CPT/HCPCS: 64633; 64634; 72040; 77002; J1100; J2001; J2704

== ENCOUNTER 2023-05-10 07:38 | Emergency (ER) | payer BC ==
[2023-05-10 07:53] VITALS: TEMP 97.2
[2023-05-10 07:59] LABS: Absolute Neutrophil Ct (ANC) 5.45 x10^3/uL (1.4-6.9); BASOPHIL % 0.9 % (0.0-0.4); Basophil (Absolute #) 0.07 x10^3/uL (0-0.4); Eosinophil (Absolute #) 0.16 x10^3/uL (0-0.5); Hematocrit 43.7 % (35-47); Hemoglobin 14.1 g/dL (12.0-16.0); IMMATURE GRAN # 0.03 x10^3u/L (0.00-0.03); IMMATURE GRAN % 0.4 % (0.00-0.4); Lymphocyte (Absolute #) 1.45 x10^3/uL (1.0-4.6); Lymphocytes % 18.4 % (24.0-44.0); Mean Corpuscular Hemoglobin 31.6 pg (26-32); Mean Corpuscular Hgb Concent. 32.3 g/dL (32-36); Mean Platelet Volume 9.6 fL (7.5-11.0); Monocytes % 8.9 % (0.0-12.0); Neutrophil % 69.4 % (36.0-66.0); Platelet Count 339 x10^3/uL (150-450); Red Blood Count 4.46 x10^6/uL (4.1-5.4); Red Cell Distribution Width 12.1 % (11.5-14.0); White Blood Count 7.9 x10^3/uL (4.0-10.5)
--- NOTE | 2023-05-10 08:11 | ERPHSYRPT ---
- History of Present Illness Source: patient, EMS Exam Limitations: no limitations Patient Subjective Stated Complaint: C/O Chest pain that came on suddenly this am when walking into work. This occurred at about 6:20am. Describes the pain as a sudden, blunt pain "like someone knocking the wind out of you." Triage Nursing Assessment: Patient arrived by ambulance. She is alert and oriented. NO SOB. Patient with a dry cough; states she has had this cough since New Year's [place]und[place]. Patient keeps clearing her throat. Skin tone normal. [place] WNL. No edema. Physician History: Patient is here with chest pain. mid-sternal. Feels like someone is knocking the wind out of her. No known previous cardiac issues, per her. reviewing chart, patient has a calcium score of 130, previous echo in 2021. Aspirin and nitro given prior to arrival via EMS/at facility. Allergies/Adverse Reactions: No Known Drug Allergies Allergy (Verified 05/10/23 07:42) Home Medications: Albuterol Sulfate Mdi [ALBUTEROL/Proair Hfa MDI] 2 puff PO QID 05/10/23 [History] Cetirizine HCl [Zyrtec] 1 tab PO DAILY 05/10/23 [History] Fluticasone Propionate [Flonase NASAL] 1 spray INTRANASAL DAILY 05/10/23 [History] Fluticasone/Umeclidin/Vilanter [Trelegy Ellipta 100-62.5-25] 1 puff PO DAILY 05/10/23 [History] Hx Tetanus, Diphtheria Vaccination/Date Given: Yes Hx Influenza Vaccination/Date Given: No Hx Pneumococcal Vaccination/Date Given: No Immunizations Up to Date: Yes Travel Risk - International Travel Have you traveled outside of the country in past 3 weeks: No - Coronavirus Screening Are you exhibiting any of the following symptoms?: No Close contact with a COVID-19 positive Pt in past 14-21 Days: No - Vaccine Status Have you recieved a Covid-19 vaccination: Yes Sole Stitcher Hand: Moderna - Vaccination Dates Date of 2cond Vaccination (if applicable): ? 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 Rider - Past Surgical History Past Surgical History: Yes Respiratory: Other Gastrointestinal: Cholecystectomy Female Surgical History: Section Other Surgical History: asthma - Social History Smoking Status: Current every day smoker How long have you smoked: 40 years Exposure to second hand smoke: Yes Drug Use: none Patient Lives Alone: No - Nursing Vital Signs Nursing Vital Signs: Initial Vital Signs Pulse Rate 77 05/10/23 07:44 Respiratory Rate 14 05/10/23 07:44 Blood Pressure 132/96 05/10/23 07:44 O2 Sat by Pulse Oximetry 98 05/10/23 07:44 Pain Scale Pain Intensity 0 - Physical Exam SpO2 Interpretation: normal SpO2: 98 Comments: 05/10/23 08:08 Physical Exam Vitals signsand nursing notereviewed. Constitutional: Appearance: She is well-developed. HENT: Head: Normocephalicand atraumatic. Eyes: Conjunctiva/sclera: Conjunctivae normal. Neck: Musculoskeletal: Normal range of motion. Trachea: No tracheal deviation. Cardiovascular: Rate and Rhythm: Normal rate. Pulmonary: Effort: Pulmonary effort is normal. Norespiratory distress. Abdominal: Palpations: Abdomen is soft. Musculoskeletal: General: No deformity. Skin: General: Skin is warmand dry. Neurological: Mental Status: She is alertand oriented to person, place, and time. Psychiatric: Behavior: Behaviornormal. Review of Systems Constitutional: Negative forfever. HENT: Negative forcongestion. Respiratory: Negative forshortness of breath. Cardiovascular: Negative forchest pain. Gastrointestinal: Negative forabdominal pain. Genitourinary: Negative fordysuria. Musculoskeletal: Negative forback pain. Skin: Negative forrash. Neurological: Negative forheadaches. Psychiatric/Behavioral: Negative forbehavioral problems. All other systems reviewed and are negative. - Course EKG Interpreted by Me: Sinus Rhythm (NSR, right bundle branch block, seen on previous EKG, no acute changes ) Ordered Tests: Active Orders 24 hr Category Date Time Status Microbiology Quality Control Technician STAT Care 05/10/23 07:41 Completed EKG-ER Only STAT Care 05/10/23 07:40 Completed IV Insertion STAT Care 05/10/23 07:40 Completed CHEST 1 VIEW (PORTABLE) Stat Exams 05/10/23 07:40 Completed CBC W DIFF Stat Lab 05/10/23 07:50 Completed CMP Stat Lab 05/10/23 07:50 Completed NT PRO BNPII Stat Lab 05/10/23 07:50 Completed TROPONIN Q4H Lab 05/10/23 10:31 Completed TROPONIN Q4H Lab 05/10/23 15:45 Ordered TROPONIN Stat Lab 05/10/23 07:50 Completed EKG STAT RT 05/10/23 11:22 Completed Lab/Rad Data: Laboratory Result Diagrams 05/10/23 07:50 05/10/23 07:50 Laboratory Results 05/10/23 05/10/23 05/10/23 Range/Units 10:31 07:50 07:50 WBC 7.9 (4.0-10.5) x10^3/uL RBC 4.46 (4.1-5.4) x10^6/uL Hgb 14.1 (12.0-16.0) g/dL Hct 43.7 (35-47) % MCV 98.0 (78-100) fL MCH 31.6 (26-32) pg MCHC 32.3 (32-36) g/dL RDW 12.1 (11.5-14.0) % Plt Count 339 (150-450) x10^3/uL MPV 9.6 (7.5-11.0) fL Gran % 69.4 H (36.0-66.0) % Immature Gran % (Auto) 0.4 (0.00-0.4) % Nucleat RBC Rel Count 0.0 (0.00-0.1) % Eos # (Auto) 0.16 (0-0.5) x10^3/uL Immature Gran # (Auto) 0.03 (0.00-0.03) x10^3u/L Absolute Lymphs (auto) 1.45 (1.0-4.6) x10^3/uL Absolute Monos (auto) 0.70 (0.0-1.3) x10^3/uL Absolute Nucleated RBC 0.00 (0.00-0.01) x10^3u/L Lymphocytes % 18.4 L (24.0-44.0) % Monocytes % 8.9 (0.0-12.0) % Eosinophils % 2.0 (0.00-5.0) % Basophils % 0.9 (0.0-0.4) % Absolute Granulocytes 5.45 (1.4-6.9) x10^3/uL Basophils # 0.07 (0-0.4) x10^3/uL Sodium 138 (137-145) mmol/L Potassium 3.9 (3.5-5.1) mmol/L Chloride 104 (98-107) mmol/L Carbon Dioxide 25 (22-30) mmol/L Anion Gap 13.3 (5-15) MEQ/L BUN 14 (7-17) mg/dL Creatinine 0.55 (0.52-1.04) mg/dL Estimated GFR 105.5 ML/MIN Glucose 107 H (74-106) mg/dL Calcium 10.1 (8.4-10.2) mg/dL Total Bilirubin 0.40 (0.2-1.3) mg/dL AST 25 (14-36) U/L ALT 22 (0-35) U/L Alkaline Phosphatase 85 (38-126) U/L Troponin I < 0.012 < 0.012 (0.000-0.034) ng/mL NT-Pro-B Natriuret Pep 38.4 (<300) pg/mL Serum Total Protein 8.1 (6.3-8.2) g/dL Albumin 4.8 (3.5-5.0) g/dL - Progress Progress: improved Progress Note: 05/10/23 08:12 differential diagnosis includes: PNA, STEMI, NSTEMI, other infection, m usculoskeletal pain, pneumothorax - We'll obtain basic labs, fluids, EKG, troponin, chest x-ray - EKG shows no ST changes - my read. See full read below. - O2 saturations consistently greater than 95%. - CXR shows no pneumonia, pneumothorax - my read 05/10/23 12:50 Over the course of ER stay patient had 2 negative cardiac markers. Patient had 2 unchanged EKGs as well. Normal sinus rhythm no ST changes, continued right bundle branch block. Her chest pain has completely resolved to a 0 out of 10. Given patient's previous calcium score, history, continued smoking I did call patient's labor training manager, Dr. Rider. We discussed the case in depth. Ultimately using shared decision-making with the patient, the patient's daughter and the labor training manager we decided patient would follow-up tomorrow morning at 9 AM with the labor training manager for reexam and continued close outpatient monitoring. Patient may benefit from outpatient stress test, repeat echo, repeat calcium score, consider cessation of catheterization. I did discuss admission to the hospital with the patient and the patient's daughter. This was offered as slightly more conservative management. I do fell it would be reasonable to admit the patient to the hospital especially given patient's history. However ultimately after discussion of risks and benefits patient decided to go home and follow-up. She may return here at any point in time via private vehicle or call 911 should she feel that she is in an emergency situation. Patient's daughter states that she will ensure that patient follows up tomorrow morning at 9 AM. My best answer all questions and concerns. Follow-up as above. Counseled pt/family regarding: lab results, diagnosis, need for follow-up, rad results, smoking cessation Medical Desision Making - Independent Historian Additional History obtained from: Child - Discussion of managment Care discussed with:: specialist Reviewed:: Test results, Need for additional workup Agreed on:: Treatment plan, need for follow-up Will see patient: In office - Social Determinants of Health Limited access to: transportation - Diagnostic Testing Diagnostic test were ordered, analyzed, and reviewed by me: Yes Radiological Interpretation: Interpreted by me, Reviewed by me - Risk of complications Low Risk: Low risk of morbidity from additional dx testing or treatment - Departure Departure Disposition: Home Clinical Impression: Chest pain Condition: Stable Critical Care Time: No Referrals: ANATOLIY BADILLO NP [Primary Care Provider] - Follow up/PCP as directed Instructions: Angina (DC), Chest Pain (DC) Additional Instructions: You have follow up tomorrow morning (05/11) with Dr. Rider at 9 am. Return to the ER sooner if you have new, worsening, or changing symptoms.
[2023-05-10 08:22] LABS: ALBUMIN 4.8 g/dL (3.5-5.0); ALKALINE PHOSPHATASE 85 U/L (38-126); ANION GAP 13.3 MEQ/L (5-15); BLOOD UREA NITROGEN 14 mg/dL (7-17); CHLORIDE 104 mmol/L (98-107); Calcium 10.1 mg/dL (8.4-10.2); Carbon Dioxide 25 mmol/L (22-30); Creatinine 1 0.55 mg/dL (0.52-1.04); EST GLOMERULAR FILTRATION RATE 105.5 ML/MIN; Glucose 107 mg/dL (74-106); NT PRO BNPII 38.4 pg/mL (<300); Potassium 3.9 mmol/L (3.5-5.1); SGOT/AST 25 U/L (14-36); SGPT/ALT 22 U/L (0-35); SODIUM 138 mmol/L (137-145); TROPONIN < 0.012 ng/mL (0.000-0.034); Total Protein 8.1 g/dL (6.3-8.2)
--- NOTE | 2023-05-10 08:38 | XRAY ---
Indication: Chest pain. Comparison: February 17, 2022 Portable chest again demonstrates normal heart and lungs. Bony thorax intact. No new/acute findings.
[2023-05-10 10:51] VITALS: RESP 14
[2023-05-10 12:13] VITALS: BP 128/70; PULSE 76
[2023-05-10 12:17] VITALS: O2SAT 98
== END 2023-05-10 12:25 | disposition home or self-care (01) ==
LOC: ED 07:38
DX: R07.9 Chest pain, unspecified (principal); Z79.899 Other long term (current) drug therapy; Z72.0 Tobacco use; Z59.82 Transportation insecurity
CPT/HCPCS: 36000; 36415; 71045; 80053; 83880; 84484; 85025; 93005; 93041; 99284